=== PATIENT | male | born 1995 | race Caucasian/White ===

== ENCOUNTER 2022-11-04 21:38 | Emergency (ER) | payer BC ==
[2022-11-04] MEDS ORDERED: Sodium Chloride 0.9% 10 ML Syringe FLUSH PRN (21:45)
[2022-11-04] MEDS ORDERED: Ondansetron 4 MG/2 ML SDV IVPUSH ONE (21:47)
[2022-11-04] MEDS ORDERED: Ondansetron 4 MG Tab.DIS PO STA (22:03)
[2022-11-04] MEDS ORDERED: Cyclobenzaprine 10 MG Tab PO ONE (22:13)
[2022-11-04] MEDS ORDERED: Ketorolac 30 MG/ML SDV IM ONE (22:13)
[2022-11-04 22:21] LABS: ESTIMATED GFR 94 mL/min (>60)
[2022-11-04] MEDS ORDERED: Potassium Chloride 20 MEQ Tab.ER PO STA (22:51)
== END 2022-11-05 00:30 | disposition home or self-care (01) ==
LOC: FB.ED 21:38
DX: R07.9 Chest pain, unspecified (principal); E87.6 Hypokalemia; E86.0 Dehydration; Z79.899 Other long term (current) drug therapy
CPT/HCPCS: 36415; 71045; 80053; 84484; 85025; 93005; 96372; 99284; A9270; J1885; Q0162; 93010; 99283